=== PATIENT | female | born 1950 | race Two or more races ===

== ENCOUNTER 2018-02-11 20:05 | Emergency (ER) | payer OTHER ==
[~2018-02-11] VITALS: Ht 157.5 cm; Wt 54.4 kg
[2018-02-11] MEDS ORDERED: SYNTHROID50 MCG (20:22)
[2018-02-11] MEDS ORDERED: GLIPIZIDE ER10 MG (20:22)
[2018-02-11] MEDS ORDERED: CRESTOR10 MG (20:23)
== END 2018-02-11 22:36 | disposition home or self-care (01) ==
LOC: ER 20:05
DX: S91.331A Puncture wound without foreign body, right foot, initial encounter (principal); W45.0XXA Nail entering through skin, initial encounter; Y93.89 Activity, other specified; Y92.018 Other place in single-family (private) house as the place of occurrence of the external cause; Y99.8 Other external cause status

== ENCOUNTER → 2021-01-27 07:40 | Outpatient (CLI) | payer OTHER ==
[~2021-01-27 07:40] MED LIST: CRESTOR10 MG; GLIPIZIDE ER10 MG; SYNTHROID50 MCG
== END | disposition home or self-care (01) ==
LOC: NUCLEAR 07:00
PROVIDERS: ATTEND Internal Medicine Cardiovascular Disease
DX: R07.89 Other chest pain (principal)
CPT/HCPCS: 78452; 93017; A9500; J0153

== ENCOUNTER 2023-07-17 11:47 | Emergency (ER) | payer OTHER ==
[~2023-07-17] VITALS: Ht 157.5 cm; Wt 46.7 kg
[2023-07-17] MEDS ORDERED: JANUMET 50-1,01 EACH PO (12:47)
[2023-07-17] MEDS ORDERED: ALENDRONATE SOD70 MG PO (12:49)
== END 2023-07-17 14:40 | disposition home or self-care (01) ==
LOC: ER 11:47
DX: S80.812A Abrasion, left lower leg, initial encounter (principal); S80.811A Abrasion, right lower leg, initial encounter; W18.39XA Other fall on same level, initial encounter; Y93.89 Activity, other specified; Y92.39 Other specified sports and athletic area as the place of occurrence of the external cause

== ENCOUNTER 2025-06-08 15:14 | Outpatient (CLI) | payer OTHER ==
[~2025-06-08 15:14] MED LIST changes: +ALENDRONATE SOD70 MG PO; +JANUMET 50-1,01 EACH PO
== END 2025-06-08 15:18 | disposition home or self-care (01) ==
LOC: SONOGRAMA 15:14
PROVIDERS: ATTEND Neuromusculoskeletal Medicine & OMM
DX: E04.1 Nontoxic single thyroid nodule (principal)

== ENCOUNTER 2025-06-10 12:18 | Outpatient (CLI) | payer OTHER | END 2025-06-10 12:26 | disposition home or self-care (01) | LOC: TOM 12:18 | PROVIDERS: ATTEND Internal Medicine | DX: J43.9 Emphysema, unspecified (principal) ==

== ENCOUNTER 2025-08-17 07:07 | Outpatient (CLI) | payer OTHER | END 2025-08-17 07:09 | disposition home or self-care (01) | LOC: NUCLEAR 07:07 | PROVIDERS: ATTEND Internal Medicine | DX: I20.9 Angina pectoris, unspecified (principal) | CPT/HCPCS: 78452; 93017; A9500 ==